=== PATIENT | female | born 1965 | race Caucasian/White ===

== ENCOUNTER 2016-12-10 11:38 | Emergency (ER) | payer OTHER ==
[~2016-12-10 11:38] MED LIST: "\\\"BP PILL\\\""; ANTIBIOTIC O500 U/GM TP; BIAXIN500 MG PO; BP MED PO; CATAFLAM50 MG PO; CLARITIN10 MG PO; HYDROCODONE BIT1 T11 PO; KETOROLAC10 MG PO; MOTRIN800 MG PO; NORVASC5 MG PO; OSCAL,OYSTER S500 MG PO; OYSTER CAL 500500 MG PO; PREDNISONE10 MG PO; PRINZIDE 12.5 M1 TA1 PO; Phenergan25 MG PO; SINEQUAN25 MG PO; TAMIFLU75 MG PO; VALIUM5 MG PO; VICODIN ES 7501 TAB PO; Vicodin 5/500 505 MG PO; ZOFRAN ODT4 MG SL; [UNRECOGNIZED DRUG - REMARK]
[2016-12-10] MEDS ORDERED: VICODIN 5-3001 EACH PO (11:50)
[2016-12-10] MEDS ORDERED: PREDNISONE50 MG PO (12:04)
[2016-12-10] MEDS ORDERED: IBU800 MG PO (12:04)
== END 2016-12-10 12:11 | disposition home or self-care (01) ==
LOC: ED 11:38
DX: G89.29 Other chronic pain (principal); M54.5 Low back pain; F17.200 Nicotine dependence, unspecified, uncomplicated; Z88.0 Allergy status to penicillin; Z88.6 Allergy status to analgesic agent; Z79.899 Other long term (current) drug therapy

== ENCOUNTER → 2017-03-17 | Outpatient (CLI) | payer OTHER ==
[~2017-03-17] MED LIST changes: +IBU800 MG PO; +PREDNISONE50 MG PO; +VICODIN 5-3001 EACH PO
[2017-03-17 10:31] LABS: HEMATOCRIT 43.2 % (37.0-47.0); HEMOGLOBIN 14.7 g/dl (12.0-16.0); MEAN CELL VOLUME 97.7 fl (81.0-99.0); MEAN CORPUSCULAR HGB 33.3 pg (27.0-31.0); MEAN PLATELET VOLUME 9.4 fl (9.6-12.3); RED BLOOD COUNT 4.42 10*6/uL (4.10-5.10)
[2017-03-17 11:02] LABS: ALBUMIN 4.1 gm/dl (3.1-4.5); BILIRUBIN, TOTAL 0.3 mg/dl (0.2-1.0); BUN 9 mg/dl (7-24); CARBON DIOXIDE 32 mmol/L (21-32); CHLORIDE 102 mmol/L (98-107); CHOLESTEROL 194 mg/dL (<200); EST GLOM FILT AFRICAN AMERICAN > 60 ml/min; GLUCOSE 92 mg/dL (65-99); POTASSIUM 3.8 mmol/L (3.5-5.1); SGOT/AST 11 IU/L (3-35); SGPT/ALT 16 U/L (12-78); SODIUM 136 mmol/L (136-145); TRIGLYCERIDES 84 mg/dl (<150); VLDL CHOLESTEROL 17 mg/dL (6-40)
[2017-03-17 11:05] LABS: ALKALINE PHOSPHATASE 58 U/L (45-117); HDL CHOLESTEROL 76 mg/dl (40-60); LDL CHOLESTEROL 101 mg/dL (9-159); TOTAL PROTEIN 7.6 gm/dL (6.4-8.2)
[2017-03-18 07:07] LABS: ESTRADIOL 004515 <5.0 pg/mL (.); FOLLICLE STIMULATING HORMONE 49.4 mIU/mL (.); LUTEINIZING HORMONE 004283 31.7 mIU/mL (.)
[2017-03-19 06:37] LABS: TESTOSTERONE FREE, (DIRECT) 1.4 pg/mL (0.0-4.2)
== END | disposition home or self-care (01) ==
LOC: LAB 10:13
PROVIDERS: Family Medicine
DX: Z13.220 Encounter for screening for lipoid disorders (principal); N95.1 Menopausal and female climacteric states; I10 Essential (primary) hypertension; M85.80 Other specified disorders of bone density and structure, unspecified site; R53.83 Other fatigue; E55.9 Vitamin D deficiency, unspecified; M41.82 Other forms of scoliosis, cervical region; M41.85 Other forms of scoliosis, thoracolumbar region; J44.9 Chronic obstructive pulmonary disease, unspecified; Z87.891 Personal history of nicotine dependence

== ENCOUNTER 2017-06-09 10:29 | Emergency (ER) | payer OTHER ==
[~2017-06-09] VITALS: Ht 162.5 cm; Wt 50.3 kg
[2017-06-09] MEDS ORDERED: LISINOPRIL30 MG PO (10:35)
[2017-06-09] MEDS ORDERED: PREDNISONE10 MG PO (10:50)
[2017-06-09] MEDS ORDERED: FLONASE ALLERG9.9 ML NAS (10:50)
[2017-06-09] MEDS ORDERED: ROBITUSSIN DM 105 ML PO (10:50)
[2017-06-09] MEDS ORDERED: CLARITIN10 MG PO (10:50)
[2017-06-09] MEDS ORDERED: ZOFRAN4 MG PO (12:30)
== END 2017-06-09 13:41 | disposition home or self-care (01) ==
LOC: ED 10:29
DX: B34.9 Viral infection, unspecified (principal); R03.0 Elevated blood-pressure reading, without diagnosis of hypertension; F17.200 Nicotine dependence, unspecified, uncomplicated; Z88.0 Allergy status to penicillin; Z88.6 Allergy status to analgesic agent

== ENCOUNTER 2017-10-09 14:52 | Emergency (ER) | payer OTHER ==
[~2017-10-09] VITALS: Ht 170.1 cm; Wt 70.3 kg
[~2017-10-09 14:52] MED LIST changes: +FLONASE ALLERG9.9 ML NAS; +LISINOPRIL30 MG PO; +ROBITUSSIN DM 105 ML PO; +ZOFRAN4 MG PO
== END 2017-10-09 16:39 | disposition home or self-care (01) ==
LOC: ED 14:52
DX: R30.0 Dysuria (principal); F17.200 Nicotine dependence, unspecified, uncomplicated; F10.10 Alcohol abuse, uncomplicated; Z88.0 Allergy status to penicillin; Z88.6 Allergy status to analgesic agent; Z79.899 Other long term (current) drug therapy

== ENCOUNTER 2019-07-23 14:49 | Emergency (ER) | payer OTHER ==
[~2019-07-23] VITALS: Ht 162.5 cm; Wt 53.5 kg
[2019-07-23] MEDS ORDERED: VALIUM5 MG PO (15:02)
[2019-07-23] MEDS ORDERED: PROAIR HFA8.5 GM INH (15:43)
[2019-07-23] MEDS ORDERED: VIBRAMYCIN100 MG PO (15:43)
[2019-07-23] MEDS ORDERED: PREDNISONE10 MG PO (16:04)
== END 2019-07-23 16:11 | disposition home or self-care (01) ==
LOC: ED 14:49
DX: J40 Bronchitis, not specified as acute or chronic (principal); M85.80 Other specified disorders of bone density and structure, unspecified site; F17.200 Nicotine dependence, unspecified, uncomplicated; Z79.899 Other long term (current) drug therapy; Z88.0 Allergy status to penicillin; Z88.6 Allergy status to analgesic agent

== ENCOUNTER → 2020-01-22 | Outpatient (CLI) | payer OTHER ==
[~2020-01-22] MED LIST changes: +PROAIR HFA8.5 GM INH; +VIBRAMYCIN100 MG PO
[2020-01-22 11:29] LABS: HEMATOCRIT 46.5 % (37.0-47.0); HEMOGLOBIN 15.6 g/dl (12.0-16.0); MEAN CELL VOLUME 95.1 fl (81.0-99.0); MEAN CORPUSCULAR HGB 31.9 pg (27.0-31.0); MEAN CORPUSCULAR HGB CONC 33.5 g/dl (33.0-37.0); RED BLOOD COUNT 4.89 10*6/uL (4.10-5.10); RED CELL DISTRI WIDTH 13.3 % (0-14.5); WHITE BLOOD COUNT 7.4 10*3/uL (4.8-10.8)
[2020-01-22 12:00] LABS: CHLORIDE 106 mmol/L (98-107); POTASSIUM 3.7 mmol/L (3.5-5.1); SODIUM 139 mmol/L (136-145)
[2020-01-22 12:23] LABS: ALBUMIN 4.4 gm/dl (3.1-4.5); ALKALINE PHOSPHATASE 89 U/L (45-117); BUN 15 mg/dl (7-24); CHOLESTEROL 224 mg/dL (<200); CREATININE 0.79 mg/dL (0.55-1.02); HDL CHOLESTEROL 82 mg/dl (40-60); LDL CHOLESTEROL 125 mg/dL (9-159); SGOT/AST 12 IU/L (3-35); SGPT/ALT 22 U/L (12-78); TRIGLYCERIDES 85 mg/dl (<150); VLDL CHOLESTEROL 17 mg/dL (6-40)
== END | disposition home or self-care (01) ==
LOC: LAB 10:54
PROVIDERS: Registered Nurse Flight
DX: Z13.220 Encounter for screening for lipoid disorders (principal); M81.0 Age-related osteoporosis without current pathological fracture; N92.4 Excessive bleeding in the premenopausal period; I10 Essential (primary) hypertension; J44.9 Chronic obstructive pulmonary disease, unspecified; Z82.49 Family history of ischemic heart disease and other diseases of the circulatory system

== ENCOUNTER → 2020-01-27 | Outpatient (CLI) | payer OTHER | END | disposition home or self-care (01) | LOC: MAMMO 09:38 | DX: Z12.31 Encounter for screening mammogram for malignant neoplasm of breast (principal); M41.25 Other idiopathic scoliosis, thoracolumbar region ==

== ENCOUNTER 2020-10-09 09:14 | Emergency (ER) | payer OTHER ==
[~2020-10-09] VITALS: Ht 162.5 cm; Wt 54.4 kg
[2020-10-09] MEDS ORDERED: NORCO 5-325 TA1 EACH PO (11:33)
== END 2020-10-09 11:55 | disposition home or self-care (01) ==
LOC: ED 09:14
DX: M48.56XA Collapsed vertebra, not elsewhere classified, lumbar region, initial encounter for fracture (principal); Z88.0 Allergy status to penicillin; Z88.5 Allergy status to narcotic agent; Z79.899 Other long term (current) drug therapy

== ENCOUNTER 2020-10-18 13:59 | Emergency (ER) | payer OTHER ==
[~2020-10-18] VITALS: Ht 162.5 cm; Wt 54.4 kg
[~2020-10-18 13:59] MED LIST changes: +NORCO 5-325 TA1 EACH PO
[2020-10-18] MEDS ORDERED: NORCO 5-325 TA1 EACH PO (14:33)
== END 2020-10-18 14:36 | disposition home or self-care (01) ==
LOC: ED 13:59
DX: S32.039D Unspecified fracture of third lumbar vertebra, subsequent encounter for fracture with routine healing (principal); I10 Essential (primary) hypertension; Z88.0 Allergy status to penicillin; Z88.5 Allergy status to narcotic agent; Z79.2 Long term (current) use of antibiotics; Z79.899 Other long term (current) drug therapy; Z98.890 Other specified postprocedural states; X58.XXXD Exposure to other specified factors, subsequent encounter

== ENCOUNTER 2020-10-29 12:00 | Emergency (ER) | payer OTHER ==
[~2020-10-29] VITALS: Ht 162.5 cm; Wt 48.5 kg
[2020-10-29] MEDS ORDERED: NORCO 5-325 TA1 EACH PO (12:34)
== END 2020-10-29 12:44 | disposition home or self-care (01) ==
LOC: ED 12:00
DX: M48.56XA Collapsed vertebra, not elsewhere classified, lumbar region, initial encounter for fracture (principal); Z88.0 Allergy status to penicillin; Z88.5 Allergy status to narcotic agent; Z79.899 Other long term (current) drug therapy

== ENCOUNTER → 2020-10-29 | Outpatient (CLI) | payer OTHER | END | disposition home or self-care (01) | LOC: RAD 11:33 | PROVIDERS: ATTEND Chiropractor Orthopedic | DX: M25.552 Pain in left hip (principal) ==

== ENCOUNTER 2021-02-22 22:56 | Emergency (ER) | payer OTHER ==
[~2021-02-22] VITALS: Ht 162.5 cm; Wt 45.4 kg
[2021-02-22 23:19] LABS: BASO % 0.6 % (0.0-1.0); EOS # 0.5 10*3/uL (0.0-0.4); EOS % 6.4 % (1.0-4.0); HEMATOCRIT 43.9 % (37.0-47.0); LYMPH # 2.9 10*3/uL (1.3-4.4); LYMPH % 40.7 % (27.0-41.0); MEAN CELL VOLUME 93.8 fl (81.0-99.0); MEAN CORPUSCULAR HGB 32.1 pg (27.0-31.0); MEAN CORPUSCULAR HGB CONC 34.2 g/dl (33.0-37.0); MEAN PLATELET VOLUME 9.7 fl (9.6-12.3); MONO # 0.4 10*3/uL (0.1-1.0); MONO % 5.6 % (3.0-9.0); NEUT # 3.3 10*3/uL (2.3-7.9); NEUT % 46.6 % (47.0-73.0); PLATELET COUNT AUTOMATED 346 10*3/uL (130-400); RED BLOOD COUNT 4.68 10*6/uL (4.10-5.10); RED CELL DISTRI WIDTH 13.5 % (0-14.5); WHITE BLOOD COUNT 7.2 10*3/uL (4.8-10.8)
[2021-02-22 23:30] LABS: BILIRUBIN Negative (Negative); BLOOD Negative (Negative); CLARITY Clear (Clear); COLOR Yellow (Yellow); GLUCOSE Negative (Negative); KETONE Negative (Negative); LEUKO ESTERASE 1+ (Negative); NITRITE Negative (Negative); PH 7.5 (4.5-8.0); SPECIFIC GRAVITY <= 1.005 (1.001-1.030); UROBILINOGEN 0.2 E.U./dl (0.0-1.0)
[2021-02-22 23:39] LABS: ALBUMIN 3.8 gm/dl (3.1-4.5); ALKALINE PHOSPHATASE 111 U/L (45-117); BUN 7 mg/dl (7-24); CHLORIDE 113 mmol/L (98-107); CREATININE 0.61 mg/dL (0.55-1.02); POTASSIUM 3.5 mmol/L (3.5-5.1); SGOT/AST 15 IU/L (3-35); SGPT/ALT 24 U/L (12-78); SODIUM 146 mmol/L (136-145); TOTAL PROTEIN 7.2 gm/dL (6.4-8.2)
[2021-02-22 23:43] LABS: URINE AMPHETAMINES < 1000 (1000ng/ml); URINE BARBITURATES < 200 (200ng/ml); URINE BENZODIAZEPINES < 200 (200ng/ml); URINE CANNABINOIDS (THC) > 50 (50ng/ml); URINE COCAINE < 300 (300ng/ml); URINE METHADONE < 300 (300ng/ml); URINE OPIATES < 300 (300ng/ml)
[2021-02-22 23:48] LABS: URINE PHENCYCLIDINE < 25 (25ng/ml)
[2021-02-22 23:53] LABS: BACTERIA 3+
== END 2021-02-23 | disposition home or self-care (01) ==
LOC: ED 22:56
PROVIDERS: Internal Medicine
DX: F10.10 Alcohol abuse, uncomplicated (principal); F12.10 Cannabis abuse, uncomplicated; Z88.0 Allergy status to penicillin; Z88.5 Allergy status to narcotic agent; Z79.2 Long term (current) use of antibiotics; Z79.899 Other long term (current) drug therapy; Z98.890 Other specified postprocedural states; Y90.8 Blood alcohol level of 240 mg/100 ml or more

== ENCOUNTER 2021-07-10 04:13 | Emergency (ER) | payer OTHER ==
[~2021-07-10] VITALS: Ht 162.5 cm; Wt 56.7 kg
[2021-07-10 04:54] LABS: BILIRUBIN Negative (Negative); BLOOD Negative (Negative); CLARITY Turbid (Clear); COLOR Yellow (Yellow); GLUCOSE Negative (Negative); KETONE Negative (Negative); LEUKO ESTERASE 2+ (Negative); NITRITE Positive (Negative); SPECIFIC GRAVITY 1.015 (1.001-1.030)
[2021-07-10 05:43] LABS: BACTERIA 1+; RBC 16-20 rbc/hpf (0-2)
[2021-07-10 06:07] LABS: BASO # 0.1 10*3/uL (0.0-0.1); BASO % 1.2 % (0.0-1.0); EOS # 0.1 10*3/uL (0.0-0.4); EOS % 2.6 % (1.0-4.0); HEMATOCRIT 41.4 % (37.0-47.0); LYMPH # 1.5 10*3/uL (1.3-4.4); LYMPH % 30.7 % (27.0-41.0); MEAN CELL VOLUME 94.1 fl (81.0-99.0); MEAN CORPUSCULAR HGB 31.8 pg (27.0-31.0); MEAN CORPUSCULAR HGB CONC 33.8 g/dl (33.0-37.0); MEAN PLATELET VOLUME 10.1 fl (9.6-12.3); MONO # 0.5 10*3/uL (0.1-1.0); MONO % 9.2 % (3.0-9.0); NEUT # 2.8 10*3/uL (2.3-7.9); NEUT % 55.9 % (47.0-73.0); PLATELET COUNT AUTOMATED 310 10*3/uL (130-400); RED CELL DISTRI WIDTH 13.4 % (0-14.5)
[2021-07-10 06:08] LABS: ALBUMIN 3.9 gm/dl (3.1-4.5); ALKALINE PHOSPHATASE 88 U/L (45-117); BUN 13 mg/dl (7-24); CHLORIDE 106 mmol/L (98-107); CREATININE 0.66 mg/dL (0.55-1.02); SGOT/AST 15 IU/L (3-35); SGPT/ALT 24 U/L (12-78); SODIUM 140 mmol/L (136-145); TOTAL PROTEIN 7.1 gm/dL (6.4-8.2)
[2021-07-10 06:21] LABS: URINE AMPHETAMINES > 1000 (1000ng/ml); URINE BARBITURATES < 200 (200ng/ml); URINE BENZODIAZEPINES < 200 (200ng/ml); URINE CANNABINOIDS (THC) < 50 (50ng/ml); URINE COCAINE < 300 (300ng/ml); URINE METHADONE < 300 (300ng/ml); URINE OPIATES < 300 (300ng/ml)
[2021-07-10 06:23] LABS: URINE PHENCYCLIDINE < 25 (25ng/ml)
[2021-07-10] MEDS ORDERED: MACROBID100 M1 PO (07:29)
== END 2021-07-10 07:58 | disposition home or self-care (01) ==
LOC: ED 04:13
PROVIDERS: Emergency Medicine
DX: N39.0 Urinary tract infection, site not specified (principal); F17.200 Nicotine dependence, unspecified, uncomplicated; Z88.6 Allergy status to analgesic agent; Z88.0 Allergy status to penicillin

== ENCOUNTER 2021-11-07 11:26 | Emergency (ER) | payer OTHER ==
[~2021-11-07] VITALS: Ht 162.5 cm; Wt 49.9 kg
[~2021-11-07 11:26] MED LIST changes: +MACROBID100 M1 PO
[2021-11-07] MEDS ORDERED: METHOCARBAMOL500 M1 PO (15:17)
[2021-11-07] MEDS ORDERED: IBUPROFEN600 MG PO (15:17)
== END 2021-11-07 15:22 | disposition home or self-care (01) ==
LOC: ED 11:26
DX: S20.211A Contusion of right front wall of thorax, initial encounter (principal); S43.401A Unspecified sprain of right shoulder joint, initial encounter; Y08.89XA Assault by other specified means, initial encounter; Y93.89 Activity, other specified; Y92.89 Other specified places as the place of occurrence of the external cause; Y99.8 Other external cause status

== ENCOUNTER 2021-11-22 01:01 | Emergency (ER) | payer OTHER ==
[~2021-11-22 01:01] MED LIST changes: +IBUPROFEN600 MG PO; +METHOCARBAMOL500 M1 PO
== END 2021-11-22 02:15 | disposition left against medical advice (07) ==
LOC: ED 01:01
DX: M79.89 Other specified soft tissue disorders (principal); Z53.21 Procedure and treatment not carried out due to patient leaving prior to being seen by health care provider

== ENCOUNTER 2021-11-28 00:38 | Emergency (ER) | payer OTHER ==
[2021-11-28 01:36] LABS: BILIRUBIN Negative (Negative); BLOOD 1+ (Negative); CLARITY Cloudy (Clear); COLOR Yellow (Yellow); GLUCOSE Negative (Negative); KETONE 1+ (Negative); LEUKO ESTERASE 2+ (Negative); NITRITE Positive (Negative); SPECIFIC GRAVITY >= 1.030 (1.001-1.030); UROBILINOGEN 0.2 E.U./dl (0.0-1.0)
[2021-11-28 01:45] LABS: URINE AMPHETAMINES > 1000 (1000ng/ml); URINE BARBITURATES < 200 (200ng/ml); URINE BENZODIAZEPINES < 200 (200ng/ml); URINE CANNABINOIDS (THC) < 50 (50ng/ml); URINE COCAINE < 300 (300ng/ml); URINE METHADONE < 300 (300ng/ml); URINE OPIATES < 300 (300ng/ml)
[2021-11-28 01:49] LABS: URINE PHENCYCLIDINE < 25 (25ng/ml)
[2021-11-28 01:59] LABS: BACTERIA 2+; EPITHELIAL CELLS 31-40; RBC 21-30 rbc/hpf (0-2); WBC 41-50 wbc/hpf (0-5)
[2021-11-28] MEDS ORDERED: CIPRO500 MG PO (02:12)
== END 2021-11-28 02:46 | disposition home or self-care (01) ==
LOC: ED 00:38
PROVIDERS: Internal Medicine
DX: N39.0 Urinary tract infection, site not specified (principal); F15.90 Other stimulant use, unspecified, uncomplicated; F17.200 Nicotine dependence, unspecified, uncomplicated; Z88.0 Allergy status to penicillin; Z88.6 Allergy status to analgesic agent

== ENCOUNTER 2021-12-06 00:48 | Emergency (ER) | payer OTHER ==
[~2021-12-06] VITALS: Ht 162.5 cm
[~2021-12-06 00:48] MED LIST changes: +CIPRO500 MG PO
== END 2021-12-06 03:07 | disposition home or self-care (01) ==
LOC: ED 00:48
DX: F15.90 Other stimulant use, unspecified, uncomplicated (principal); Z88.0 Allergy status to penicillin; Z88.6 Allergy status to analgesic agent; Z87.891 Personal history of nicotine dependence

== ENCOUNTER 2021-12-11 23:59 | Emergency (ER) | payer OTHER ==
[~2021-12-11] VITALS: Ht 162.5 cm; Wt 47.9 kg
== END 2021-12-12 00:24 | disposition home or self-care (01) ==
LOC: ED 23:59
DX: Z00.00 Encounter for general adult medical examination without abnormal findings (principal); F15.20 Other stimulant dependence, uncomplicated; F17.200 Nicotine dependence, unspecified, uncomplicated; Z88.0 Allergy status to penicillin; Z88.6 Allergy status to analgesic agent

== ENCOUNTER 2022-05-12 14:03 | Emergency (ER) | payer OTHER ==
[~2022-05-12] VITALS: Wt 49.9 kg
== END 2022-05-12 16:50 | disposition left against medical advice (07) ==
LOC: ED 14:03
DX: R06.02 Shortness of breath (principal); R51.9 Headache, unspecified; Z88.0 Allergy status to penicillin; Z88.6 Allergy status to analgesic agent; F17.200 Nicotine dependence, unspecified, uncomplicated

== ENCOUNTER 2022-06-03 15:41 | Emergency (ER) | payer OTHER ==
[~2022-06-03] VITALS: Ht 162.5 cm; Wt 54.4 kg
[2022-06-03 16:30] LABS: BASO % 1.3 % (0.0-1.0); EOS # 0.1 10*3/uL (0.0-0.4); EOS % 1.7 % (1.0-4.0); LYMPH # 0.5 10*3/uL (1.3-4.4); LYMPH % 16.3 % (27.0-41.0); MEAN CELL VOLUME 87.5 fl (81.0-99.0); MEAN CORPUSCULAR HGB 30.2 pg (27.0-31.0); MEAN CORPUSCULAR HGB CONC 34.4 g/dl (33.0-37.0); MEAN PLATELET VOLUME 9.8 fl (9.6-12.3); MONO # 0.2 10*3/uL (0.1-1.0); MONO % 7.6 % (3.0-9.0); NEUT # 2.2 10*3/uL (2.3-7.9); NEUT % 72.8 % (47.0-73.0); PLATELET COUNT AUTOMATED 190 10*3/uL (130-400); RED BLOOD COUNT 5.14 10*6/uL (4.10-5.10); RED CELL DISTRI WIDTH 13.3 % (0-14.5)
[2022-06-03 16:45] LABS: ALKALINE PHOSPHATASE 203 U/L (45-117); BUN 11 mg/dl (7-24); CHLORIDE 100 mmol/L (98-107); CREATININE 0.68 mg/dL (0.55-1.02); POTASSIUM 3.5 mmol/L (3.5-5.1); SGOT/AST 342 IU/L (3-35); SGPT/ALT 282 U/L (12-78); SODIUM 134 mmol/L (136-145); TOTAL PROTEIN 7.1 gm/dL (6.4-8.2)
[2022-06-03] MEDS ORDERED: PROAIR HFA8.5 GM INH (17:06)
[2022-06-03] MEDS ORDERED: PREDNISONE10 MG PO (17:06)
[2022-06-03] MEDS ORDERED: VIBRA-TAB100 MG PO (17:06)
== END 2022-06-03 17:28 | disposition home or self-care (01) ==
LOC: ED 15:41
PROVIDERS: Emergency Medicine
DX: J44.1 Chronic obstructive pulmonary disease with (acute) exacerbation (principal); Z98.890 Other specified postprocedural states; Z88.0 Allergy status to penicillin; Z88.5 Allergy status to narcotic agent

== ENCOUNTER 2022-11-15 11:26 | Emergency (ER) | payer OTHER ==
[~2022-11-15] VITALS: Ht 162.5 cm; Wt 44.7 kg
[~2022-11-15 11:26] MED LIST changes: +VIBRA-TAB100 MG PO
== END 2022-11-15 13:25 | disposition home or self-care (01) ==
LOC: ED 11:26
DX: R04.0 Epistaxis (principal); Z88.0 Allergy status to penicillin; Z88.5 Allergy status to narcotic agent; F17.200 Nicotine dependence, unspecified, uncomplicated; F10.90 Alcohol use, unspecified, uncomplicated

== ENCOUNTER 2023-09-13 15:06 | Emergency (ER) | payer OTHER ==
[~2023-09-13] VITALS: Wt 52.2 kg
[2023-09-13] MEDS ORDERED: HYDROCODONE-AC1 EACH PO (20:06)
== END 2023-09-13 20:30 | disposition home or self-care (01) ==
LOC: ED 15:06
DX: S22.089A Unspecified fracture of T11-T12 vertebra, initial encounter for closed fracture (principal); J44.9 Chronic obstructive pulmonary disease, unspecified; F17.200 Nicotine dependence, unspecified, uncomplicated; Z88.0 Allergy status to penicillin; Z88.5 Allergy status to narcotic agent; Z98.890 Other specified postprocedural states; X50.0XXA Overexertion from strenuous movement or load, initial encounter; Y93.89 Activity, other specified; Y92.89 Other specified places as the place of occurrence of the external cause; Y99.8 Other external cause status

== ENCOUNTER 2024-02-08 12:59 | Emergency (ER) | payer OTHER ==
[~2024-02-08] VITALS: Ht 162.5 cm; Wt 41.3 kg
[~2024-02-08 12:59] MED LIST changes: +HYDROCODONE-AC1 EACH PO
[2024-02-08] MEDS ORDERED: SODIUM CHLORIDE 0.9% 1,000 ML IV ONE (13:05)
[2024-02-08] MEDS ORDERED: Albuterol Sulfate 2.5 MG/3 ML VIAL NEB ONE (13:05)
[2024-02-08] MEDS ORDERED: MAGNESIUM SULFATE 50 ML IV ONE (13:05)
[2024-02-08] MEDS ORDERED: methylPREDNISolone sod succ 125 MG VIAL IV ONE (13:05)
[2024-02-08 13:32] LABS: BASO # 0.1 10*3/uL (0.0-0.1); BASO % 0.8 % (0.0-1.0); EOS # 0.5 10*3/uL (0.0-0.4); EOS % 7.3 % (1.0-4.0); HEMATOCRIT 49.8 % (37.0-47.0); LYMPH % 32.6 % (27.0-41.0); MEAN CELL VOLUME 92.6 fl (81.0-99.0); MEAN CORPUSCULAR HGB 30.1 pg (27.0-31.0); MEAN CORPUSCULAR HGB CONC 32.5 g/dl (33.0-37.0); MONO # 0.5 10*3/uL (0.1-1.0); MONO % 7.6 % (3.0-9.0); NEUT # 3.2 10*3/uL (2.3-7.9); NEUT % 51.5 % (47.0-73.0); PLATELET COUNT AUTOMATED 355 10*3/uL (130-400); RED BLOOD COUNT 5.38 10*6/uL (4.10-5.10); RED CELL DISTRI WIDTH 12.9 % (0-14.5); WHITE BLOOD COUNT 6.2 10*3/uL (4.8-10.8)
[2024-02-08 14:04] LABS: ALKALINE PHOSPHATASE 106 U/L (46-116); BUN 13 mg/dl (9-23); CHLORIDE 104 mmol/L (98-107); SGPT/ALT 10 U/L (5-49); TOTAL PROTEIN 7.9 gm/dL (6.0-8.0)
[2024-02-08] MEDS ORDERED: PREDNISONE20 M1 PO (14:33)
[2024-02-08] MEDS ORDERED: AVPAK AZITHROM250 M1 PO (14:34)
[2024-02-08] MEDS ORDERED: BENZONATATE100 M1 PO (14:34)
== END 2024-02-08 14:41 | disposition home or self-care (01) ==
LOC: ED 12:59
PROVIDERS: Emergency Medicine
DX: J44.1 Chronic obstructive pulmonary disease with (acute) exacerbation (principal); Z88.0 Allergy status to penicillin; Z88.5 Allergy status to narcotic agent; Z98.890 Other specified postprocedural states; F17.210 Nicotine dependence, cigarettes, uncomplicated

== ENCOUNTER 2024-08-20 21:58 | Emergency (ER) | payer OTHER ==
[~2024-08-20] VITALS: Ht 162.5 cm; Wt 45.2 kg
[~2024-08-20 21:58] MED LIST changes: +AVPAK AZITHROM250 M1 PO; +BENZONATATE100 M1 PO; +PREDNISONE20 M1 PO
[2024-08-20] MEDS ORDERED: LORazepam 2 MG/ML VIAL IV ONE (22:05)
[2024-08-20 22:30] LABS: BASO # 0.1 10*3/uL (0.0-0.1); BASO % 0.3 % (0.0-1.0); EOS # 0.1 10*3/uL (0.0-0.4); EOS % 0.8 % (1.0-4.0); HEMATOCRIT 48.2 % (37.0-47.0); LYMPH # 2.3 10*3/uL (1.3-4.4); LYMPH % 14.7 % (27.0-41.0); MEAN CELL VOLUME 92.2 fl (81.0-99.0); MEAN CORPUSCULAR HGB 30.4 pg (27.0-31.0); MEAN PLATELET VOLUME 9.8 fl (9.6-12.3); MONO # 0.7 10*3/uL (0.1-1.0); MONO % 4.2 % (3.0-9.0); NEUT # 12.4 10*3/uL (2.3-7.9); NEUT % 79.7 % (47.0-73.0); PLATELET COUNT AUTOMATED 363 10*3/uL (130-400); RED BLOOD COUNT 5.23 10*6/uL (4.10-5.10); RED CELL DISTRI WIDTH 13.2 % (0-14.5); WHITE BLOOD COUNT 15.5 10*3/uL (4.8-10.8)
[2024-08-20 22:54] LABS: BUN 12 mg/dl (9-23); CHLORIDE 102 mmol/L (98-107); POTASSIUM 3.7 mmol/L (3.4-5.1)
[2024-08-20] MEDS ORDERED: TICAGRELOR 90 MG TABLET PO ONE (22:55)
[2024-08-20] MEDS ORDERED: HEPARIN SODIUM 250 ML IV SCH (23:00)
[2024-08-20] MEDS ORDERED: ASPIRIN, CHEWABLE 81 MG TAB PO ONE (23:00)
[2024-08-21] MEDS ORDERED: LORazepam 2 MG/ML VIAL IV ONE (02:50)
== END 2024-08-21 11:46 | disposition short-term general hospital (02) ==
LOC: ED 21:58
PROVIDERS: Internal Medicine
DX: I21.9 Acute myocardial infarction, unspecified (principal); D72.829 Elevated white blood cell count, unspecified; J44.9 Chronic obstructive pulmonary disease, unspecified; F17.200 Nicotine dependence, unspecified, uncomplicated; Z88.0 Allergy status to penicillin; Z88.5 Allergy status to narcotic agent; Z98.890 Other specified postprocedural states

== ENCOUNTER 2024-09-07 14:45 | Emergency (ER) | payer OTHER ==
[2024-09-07] MEDS ORDERED: Acetaminophen/Oxycodone 5 MG/325 MG TABLET PO ONE (15:00)
[2024-09-07] MEDS ORDERED: DIAZEPAM 5 MG TAB PO ONE (15:00)
[2024-09-07] MEDS ORDERED: TRAMADOL HCL50 MG PO (16:34)
== END 2024-09-07 16:39 | disposition home or self-care (01) ==
LOC: ED 14:45
DX: S32.038A Other fracture of third lumbar vertebra, initial encounter for closed fracture (principal); F17.200 Nicotine dependence, unspecified, uncomplicated; Z88.0 Allergy status to penicillin; Z88.5 Allergy status to narcotic agent; Z98.890 Other specified postprocedural states; X58.XXXA Exposure to other specified factors, initial encounter; Y93.89 Activity, other specified; Y92.89 Other specified places as the place of occurrence of the external cause; Y99.8 Other external cause status

== ENCOUNTER → 2024-10-07 | Outpatient (CLI) | payer OTHER ==
[~2024-10-07] MED LIST changes: +TRAMADOL HCL50 MG PO
[2024-10-07 13:04] LABS: BASO % 0.7 % (0.0-1.0); EOS # 0.2 10*3/uL (0.0-0.4); EOS % 3.1 % (1.0-4.0); HEMATOCRIT 47.8 % (37.0-47.0); MEAN CELL VOLUME 100.6 fl (81.0-99.0); MEAN CORPUSCULAR HGB 30.3 pg (27.0-31.0); MEAN CORPUSCULAR HGB CONC 30.1 g/dl (33.0-37.0); MEAN PLATELET VOLUME 9.3 fl (9.6-12.3); MONO # 0.4 10*3/uL (0.1-1.0); MONO % 7.7 % (3.0-9.0); NEUT # 2.9 10*3/uL (2.3-7.9); NEUT % 52.4 % (47.0-73.0); PLATELET COUNT AUTOMATED 318 10*3/uL (130-400); RED BLOOD COUNT 4.75 10*6/uL (4.10-5.10); RED CELL DISTRI WIDTH 14.1 % (0-14.5); WHITE BLOOD COUNT 5.5 10*3/uL (4.8-10.8)
[2024-10-07 13:40] LABS: ALKALINE PHOSPHATASE 115 U/L (46-116); BUN 12 mg/dl (9-23); CHLORIDE 107 mmol/L (98-107); CHOLESTEROL 213 mg/dL (<200); LDL CHOLESTEROL 117 mg/dL (9-159); POTASSIUM 4.1 mmol/L (3.4-5.1); SGPT/ALT 19 U/L (5-49); TOTAL PROTEIN 7.8 gm/dL (6.0-8.0); TRIGLYCERIDES 96 mg/dl (<150)
== END | disposition home or self-care (01) ==
LOC: LAB 12:42
PROVIDERS: ATTEND Nurse Practitioner Family
DX: Z13.220 Encounter for screening for lipoid disorders (principal); Z13.29 Encounter for screening for other suspected endocrine disorder; Z13.1 Encounter for screening for diabetes mellitus; I10 Essential (primary) hypertension; Z76.89 Persons encountering health services in other specified circumstances

== ENCOUNTER 2024-12-28 19:45 | Emergency (ER) | payer OTHER ==
[~2024-12-28] VITALS: Ht 162.5 cm; Wt 45.4 kg
[2024-12-28 20:37] LABS: BASO % 0.6 % (0.0-1.0); EOS % 0.1 % (1.0-4.0); HEMATOCRIT 43.9 % (37.0-47.0); MEAN CELL VOLUME 90.9 fl (81.0-99.0); MEAN CORPUSCULAR HGB 30.4 pg (27.0-31.0); MEAN CORPUSCULAR HGB CONC 33.5 g/dl (33.0-37.0); MEAN PLATELET VOLUME 9.5 fl (9.6-12.3); MONO # 0.4 10*3/uL (0.1-1.0); MONO % 6.2 % (3.0-9.0); NEUT # 5.9 10*3/uL (2.3-7.9); NEUT % 84.5 % (47.0-73.0); PLATELET COUNT AUTOMATED 294 10*3/uL (130-400); RED BLOOD COUNT 4.83 10*6/uL (4.10-5.10); RED CELL DISTRI WIDTH 13.8 % (0-14.5)
[2024-12-28 20:57] LABS: BUN 10 mg/dl (9-23); CHLORIDE 105 mmol/L (98-107); POTASSIUM 3.9 mmol/L (3.4-5.1)
[2024-12-28] MEDS ORDERED: Ondansetron4 MG PO (22:54)
[2024-12-28] MEDS ORDERED: PAXLOVID 300-11 EAC3 PO (22:54)
[2024-12-28] MEDS ORDERED: Ondansetron 4 MG 2 TAB ED PACK PO SCH (22:55)
== END 2024-12-28 22:52 | disposition home or self-care (01) ==
LOC: ED 19:45
PROVIDERS: Nurse Practitioner Family
DX: B34.9 Viral infection, unspecified (principal); Z20.822 Contact with and (suspected) exposure to COVID-19; J44.9 Chronic obstructive pulmonary disease, unspecified; I25.2 Old myocardial infarction; F17.200 Nicotine dependence, unspecified, uncomplicated; Z88.0 Allergy status to penicillin; Z88.5 Allergy status to narcotic agent; Z98.890 Other specified postprocedural states

== ENCOUNTER 2025-03-07 13:06 | Emergency (ER) | payer OTHER ==
[~2025-03-07] VITALS: Ht 162.5 cm; Wt 45.4 kg
[~2025-03-07 13:06] MED LIST changes: +Ondansetron4 MG PO; +PAXLOVID 300-11 EAC3 PO
[2025-03-07] MEDS ORDERED: PREDNISONE20 M1 PO (14:15)
[2025-03-07] MEDS ORDERED: methylPREDNISolone sod succ 125 MG VIAL IM ONE (14:20)
[2025-03-07] MEDS ORDERED: Midazolam Hydrochloride 5 MG/5 ML VIAL ONE ×2 (16:00→16:03)
== END 2025-03-07 14:31 | disposition home or self-care (01) ==
LOC: ED 13:06
DX: L23.7 Allergic contact dermatitis due to plants, except food (principal); J44.9 Chronic obstructive pulmonary disease, unspecified; F17.200 Nicotine dependence, unspecified, uncomplicated; Z88.0 Allergy status to penicillin; Z88.5 Allergy status to narcotic agent; Z79.899 Other long term (current) drug therapy; Z98.890 Other specified postprocedural states

== ENCOUNTER → 2025-04-08 | Outpatient (CLI) | payer OTHER ==
[2025-04-08 16:46] LABS: BASO # 0.1 10*3/uL (0.0-0.1); BASO % 0.8 % (0.0-1.0); EOS # 0.2 10*3/uL (0.0-0.4); EOS % 3.7 % (1.0-4.0); HEMATOCRIT 49.6 % (37.0-47.0); MEAN CELL VOLUME 93.4 fl (81.0-99.0); MEAN CORPUSCULAR HGB 29.6 pg (27.0-31.0); MEAN CORPUSCULAR HGB CONC 31.7 g/dl (33.0-37.0); MEAN PLATELET VOLUME 10.7 fl (9.6-12.3); MONO # 0.5 10*3/uL (0.1-1.0); MONO % 7.3 % (3.0-9.0); NEUT % 64.8 % (47.0-73.0); PLATELET COUNT AUTOMATED 368 10*3/uL (130-400); RED BLOOD COUNT 5.31 10*6/uL (4.10-5.10); WHITE BLOOD COUNT 6.2 10*3/uL (4.8-10.8)
[2025-04-08 16:59] LABS: ALKALINE PHOSPHATASE 142 U/L (46-116); BUN 12 mg/dl (9-23); CHLORIDE 103 mmol/L (98-107); CHOLESTEROL 261 mg/dL (<200); LDL CHOLESTEROL 160 mg/dL (9-159); POTASSIUM 3.8 mmol/L (3.4-5.1); SGPT/ALT 15 U/L (5-49); TOTAL PROTEIN 8.1 gm/dL (6.0-8.0); TRIGLYCERIDES 101 mg/dl (<150); VITAMIN D, 25-HYDROXY 42.2 ng/mL (30-100)
== END | disposition home or self-care (01) ==
LOC: LAB 15:05
PROVIDERS: ATTEND Nurse Practitioner Family
DX: I10 Essential (primary) hypertension (principal); E56.9 Vitamin deficiency, unspecified; R53.83 Other fatigue; J44.9 Chronic obstructive pulmonary disease, unspecified; G89.28 Other chronic postprocedural pain; M41.9 Scoliosis, unspecified; E78.2 Mixed hyperlipidemia

== ENCOUNTER 2025-06-30 16:08 | Emergency (ER) | payer OTHER ==
[~2025-06-30] VITALS: Wt 43.1 kg
[2025-06-30 17:16] LABS: BASO # 0.1 10*3/uL (0.0-0.1); BASO % 0.9 % (0.0-1.0); EOS # 0.4 10*3/uL (0.0-0.4); EOS % 4.4 % (1.0-4.0); MEAN CELL VOLUME 92.9 fl (81.0-99.0); MEAN CORPUSCULAR HGB 29.9 pg (27.0-31.0); MEAN PLATELET VOLUME 9.1 fl (9.6-12.3); MONO # 0.6 10*3/uL (0.1-1.0); MONO % 8.0 % (3.0-9.0); NEUT # 5.5 10*3/uL (2.3-7.9); NEUT % 69.8 % (47.0-73.0); NUCLEATED RED BLOOD CELL 0.0 % (0.0-0.0); NUCLEATED RED BLOOD CELL 0.0 10*3/uL (0.0-0.0); PLATELET COUNT AUTOMATED 418 10*3/uL (130-400); RED CELL DISTRI WIDTH 14.5 % (0-14.5)
[2025-06-30 17:32] LABS: BUN 18 mg/dl (9-23); SGPT/ALT 23 U/L (5-49)
[2025-06-30] MEDS ORDERED: IOHEXOL 350 MG/ML 100 ML VIAL IV ONE (17:35)
[2025-06-30] MEDS ORDERED: SODIUM CHLORIDE 0.9% 100 ML BAG IV ONE (17:35)
[2025-06-30] MEDS ORDERED: PREDNISONE20 M1 PO (19:51)
== END 2025-06-30 19:54 | disposition home or self-care (01) ==
LOC: ED 16:08
PROVIDERS: Emergency Medicine
DX: R07.89 Other chest pain (principal); J44.9 Chronic obstructive pulmonary disease, unspecified; I25.2 Old myocardial infarction; G35 Multiple sclerosis; F17.200 Nicotine dependence, unspecified, uncomplicated; Z88.0 Allergy status to penicillin; Z88.5 Allergy status to narcotic agent; Z86.16 Personal history of COVID-19; Z98.890 Other specified postprocedural states

== ENCOUNTER 2025-07-30 20:15 | Emergency (ER) | payer OTHER ==
[~2025-07-30] VITALS: Ht 162.6 cm; Wt 54.4 kg
[~2025-07-30 20:15] MED LIST changes: +ALDACTONE25 MG PO; +BREYNA 160-4.10.3 GM INH; +HYDROXYZINE HCL25 MG PO; +METOPROLOL SUCC25 M2 PO; +ONDANSETRON HYDR4 MG PO; +PERCOCET 5-3251 EACH PO; +VITAMIN D350 MCG PO
[2025-07-30] MEDS ORDERED: Albuterol Sulf/Ipratropium 3 ML VIAL NEB ONE (20:50)
[2025-07-30 21:10] LABS: BASO # 0.1 10*3/uL (0.0-0.1); BASO % 0.7 % (0.0-1.0); EOS # 0.3 10*3/uL (0.0-0.4); EOS % 3.6 % (1.0-4.0); MEAN CELL VOLUME 94.1 fl (81.0-99.0); MEAN CORPUSCULAR HGB 30.0 pg (27.0-31.0); MEAN PLATELET VOLUME 9.2 fl (9.6-12.3); MONO # 0.7 10*3/uL (0.1-1.0); MONO % 8.7 % (3.0-9.0); NEUT # 5.2 10*3/uL (2.3-7.9); NEUT % 61.4 % (47.0-73.0); NUCLEATED RED BLOOD CELL 0.0 % (0.0-0.0); NUCLEATED RED BLOOD CELL 0.0 10*3/uL (0.0-0.0); PLATELET COUNT AUTOMATED 400 10*3/uL (130-400); RED CELL DISTRI WIDTH 14.9 % (0-14.5)
[2025-07-30 21:30] LABS: BUN 16 mg/dl (9-23)
[2025-07-30] MEDS ORDERED: diazePAM 5 MG TAB PO ONE (21:50)
== END 2025-07-30 22:55 | disposition home or self-care (01) ==
LOC: ED 20:15
PROVIDERS: Nurse Practitioner Family
DX: J44.1 Chronic obstructive pulmonary disease with (acute) exacerbation (principal); F41.9 Anxiety disorder, unspecified; I25.2 Old myocardial infarction; M41.9 Scoliosis, unspecified; Z98.890 Other specified postprocedural states; Z88.0 Allergy status to penicillin; Z88.5 Allergy status to narcotic agent; Z86.16 Personal history of COVID-19

== ENCOUNTER 2025-10-11 20:01 | Emergency (ER) | payer OTHER ==
[~2025-10-11] VITALS: Ht 162.5 cm; Wt 45.4 kg
[2025-10-11] MEDS ORDERED: Albuterol Sulf/Ipratropium 3 ML VIAL NEB ONE (20:15)
[2025-10-11] MEDS ORDERED: LORazepam 2 MG/ML VIAL IV ONE (20:20)
[2025-10-11 20:41] LABS: BASO # 0.1 10*3/uL (0.0-0.1); BASO % 0.5 % (0.0-1.0); EOS # 0.1 10*3/uL (0.0-0.4); EOS % 0.7 % (1.0-4.0); MEAN CELL VOLUME 94.3 fl (81.0-99.0); MEAN CORPUSCULAR HGB 30.3 pg (27.0-31.0); MEAN PLATELET VOLUME 9.0 fl (9.6-12.3); MONO # 0.9 10*3/uL (0.1-1.0); MONO % 8.4 % (3.0-9.0); NEUT # 7.4 10*3/uL (2.3-7.9); NEUT % 73.2 % (47.0-73.0); NUCLEATED RED BLOOD CELL 0.0 % (0.0-0.0); NUCLEATED RED BLOOD CELL 0.0 10*3/uL (0.0-0.0); PLATELET COUNT AUTOMATED 424 10*3/uL (130-400); RED CELL DISTRI WIDTH 14.5 % (0-14.5)
[2025-10-11] MEDS ORDERED: ESCITALOPRAM OX10 MG PO (20:51)
[2025-10-11] MEDS ORDERED: LISINOPRIL20 MG PO (20:51)
[2025-10-11] MEDS ORDERED: VENTOLIN 02.5 MG/3 M INH (20:53)
[2025-10-11 21:08] LABS: BUN 11 mg/dl (9-23)
[2025-10-11] MEDS ORDERED: ZITHROMAX250 MG PO (23:15)
[2025-10-11] MEDS ORDERED: PREDNISONE20 M1 PO (23:15)
[2025-10-11] MEDS ORDERED: AZITHROMYCIN 250 MG TAB PO ONE (23:20)
== END 2025-10-12 01:18 | disposition home or self-care (01) ==
LOC: ED 20:01
PROVIDERS: Emergency Medicine
DX: R07.89 Other chest pain (principal); F17.210 Nicotine dependence, cigarettes, uncomplicated; Z88.0 Allergy status to penicillin; Z88.5 Allergy status to narcotic agent; Z98.890 Other specified postprocedural states

== ENCOUNTER 2025-10-16 13:44 | Emergency (ER) | payer OTHER ==
[~2025-10-16] VITALS: Wt 59.0 kg
[~2025-10-16 13:44] MED LIST changes: +ESCITALOPRAM OX10 MG PO; +LISINOPRIL20 MG PO; +VENTOLIN 02.5 MG/3 M INH; +ZITHROMAX250 MG PO
[2025-10-16] MEDS ORDERED: Albuterol Sulf/Ipratropium 3 ML VIAL NEB ONE (14:55)
[2025-10-16 15:22] LABS: MANUAL DIFF REFLEX YES; MEAN CELL VOLUME 93.7 fl (81.0-99.0); MEAN CORPUSCULAR HGB 30.9 pg (27.0-31.0); MEAN PLATELET VOLUME 8.8 fl (9.6-12.3); NUCLEATED RED BLOOD CELL 0.0 % (0.0-0.0); NUCLEATED RED BLOOD CELL 0.0 10*3/uL (0.0-0.0); PLATELET COUNT AUTOMATED 425 10*3/uL (130-400); RED CELL DISTRI WIDTH 14.3 % (0-14.5)
[2025-10-16 15:43] LABS: BUN 13 mg/dl (9-23); SGPT/ALT 15 U/L (5-49)
[2025-10-16 15:44] LABS: PLATELET SUFFICIENCY HIGH (NORMAL)
[2025-10-16] MEDS ORDERED: BENZONATATE200 MG PO (17:47)
[2025-10-16] MEDS ORDERED: NICODERM CQ1 EAC2 TD (17:47)
[2025-10-16] MEDS ORDERED: MEDROL DOSEPAK4 MG PO (17:47)
== END 2025-10-16 17:35 | disposition home or self-care (01) ==
LOC: ED 13:44
DX: R11.10 Vomiting, unspecified (principal); I25.2 Old myocardial infarction; F17.210 Nicotine dependence, cigarettes, uncomplicated; Z88.0 Allergy status to penicillin; Z88.5 Allergy status to narcotic agent; Z86.16 Personal history of COVID-19